=== PATIENT | female | born 1960 | race Caucasian/White ===

== ENCOUNTER 2017-05-26 05:31 | Day surgery (SDC) | payer BC ==
[~2017-05-26] VITALS: Ht 160 cm; Wt 81.7 kg
[~2017-05-26 05:31] MED LIST: ADVAIR 100/501 DISK IH; ALLEGRA ALLERG180 MG PO; ASPIR 8181 M1 PO; BENADRYL ALLERG25 MG PO; BENAZEPRIL HCL10 MG PO; CELEBREX50 MG PO; CHERATUSSIN AC473 ML PO; FLAGYL500 MG PO; FLUCINONIDE TP; FLUNISOLIDE25 ML BOTH NARES; LASIX20 MG PO; LIDODERM 5% P1 PATCH TD; LINZESS290 MCG PO; LOTRIMIN10 ML TP; MINASTRIN 24 F1 EACH PO; MIRAPEX0.125 MG PO; MYRBETRIQ25 MG PO; NAPROSYN500 MG PO; NEXIUM40 MG PO; NORVASC5 MG PO; PREDNISONE10 MG PO; PROMETHAZINE HC25 M1 PO; SINGULAIR10 MG PO; SOMA350 MG PO; SYNTHROID25 MCG PO; SYNTHROID50 MCG PO; ULTRAM50 MG PO; ZOFRAN4 MG PO; [UNRECOGNIZED DRUG - OTHER] TP
[2017-05-26 05:56] VITALS: BP 183/93
[2017-05-26] MEDS ORDERED: NORCO 5/3251 TABLET PO (09:04)
[2017-05-26] MEDS ORDERED: ULTRAM50 MG PO (09:25)
[2017-05-26 10:50] VITALS: BP 169/79
[2017-05-26 11:38] VITALS: BP 143/79
== END 2017-05-26 11:44 | disposition home or self-care (01) ==
LOC: SDC 05:31
PROC: 0FT44ZZ Resection of Gallbladder, Percutaneous Endoscopic Approach (ICD-10-PCS; principal; 2017-05-26)
PROC: BF141ZZ Fluoroscopy of Gallbladder, Bile Ducts and Pancreatic Ducts using Low Osmolar Contrast (ICD-10-PCS; principal; 2017-05-26)
DX: K80.10 Calculus of gallbladder with chronic cholecystitis without obstruction (principal); I10 Essential (primary) hypertension; E03.9 Hypothyroidism, unspecified; J45.909 Unspecified asthma, uncomplicated; M17.9 Osteoarthritis of knee, unspecified; K44.9 Diaphragmatic hernia without obstruction or gangrene; F41.1 Generalized anxiety disorder; F32.9 Major depressive disorder, single episode, unspecified; M51.36 Other intervertebral disc degeneration, lumbar region; Z82.49 Family history of ischemic heart disease and other diseases of the circulatory system; Z82.5 Family history of asthma and other chronic lower respiratory diseases; Z88.5 Allergy status to narcotic agent; Z87.442 Personal history of urinary calculi
CPT/HCPCS: 74300; 93005; J0330; J0360; J1100; J2405; J2710; J2765; J3010; S0020

== ENCOUNTER → 2017-06-21 | Outpatient (CLI) | payer BC ==
[~2017-06-21] MED LIST changes: +NORCO 5/3251 TABLET PO
== END | disposition home or self-care (01) ==
LOC: AMB 09:30
DX: D17.22 Benign lipomatous neoplasm of skin and subcutaneous tissue of left arm (principal); D17.21 Benign lipomatous neoplasm of skin and subcutaneous tissue of right arm
CPT/HCPCS: 88304